=== PATIENT | female | born 2000 | race Two or more races ===

== ENCOUNTER 2023-02-27 20:28 | Emergency (ER) | payer OTHER ==
[~2023-02-27] VITALS: Ht 157.5 cm; Wt 42.6 kg
[2023-02-27] MEDS ORDERED: FLUORESCEIN SODIUM OPHTH 1 EA STRIP OP ONE (21:00)
[2023-02-27] MEDS ORDERED: LIDOCAINE HCL/PF 1% 30 ML VIAL TP ONE (21:00)
[2023-02-27] MEDS ORDERED: TETRAcaine 5 ML BOTTLE EACHEYE ONE (21:00)
[2023-02-27] MEDS ORDERED: TDAP [DIPH/PERTUSSIS/TET] 0.5 ML VIAL IM ONE ×2 (21:00→21:08)
[2023-02-27] MEDS ORDERED: LIDOCAINE HCL/MPF 1% 30 ML VIAL IJ ONE (21:07)
[2023-02-27] MEDS ORDERED: FLUORESCEIN SODIUM OPHTH 1 EA STRIP ONE (21:08)
[2023-02-27 21:57] VITALS: BP 112/68; TEMP 98.4; O2SAT 99
== END 2023-02-27 21:58 ==
LOC: ER 20:37
DX: S01.111A Laceration without foreign body of right eyelid and periocular area, initial encounter (principal); Y04.0XXA Assault by unarmed brawl or fight, initial encounter; Y93.89 Activity, other specified; Y92.89 Other specified places as the place of occurrence of the external cause; Y99.8 Other external cause status
CPT/HCPCS: 12011; 90471; 90715; 99283; J3490